=== PATIENT | female | born 1980 | race Caucasian/White ===

== ENCOUNTER → 2020-12-28 | Emergency (ER) | payer OTHER ==
[~2020-12-28] VITALS: Ht 160 cm; Wt 113.4 kg
== END | disposition left against medical advice (07) ==
LOC: ER 05:32
DX: Z53.21 Procedure and treatment not carried out due to patient leaving prior to being seen by health care provider (principal)

== ENCOUNTER 2022-01-31 09:12 | Emergency (ER) | payer OTHER ==
[~2022-01-31] VITALS: Ht 160 cm; Wt 117.9 kg
== END 2022-01-31 10:22 | disposition home or self-care (01) ==
LOC: ER 09:12
DX: J06.9 Acute upper respiratory infection, unspecified (principal); N39.0 Urinary tract infection, site not specified

== ENCOUNTER 2022-04-27 02:17 | Emergency (ER) | payer OTHER ==
[~2022-04-27] VITALS: Ht 162.6 cm; Wt 122.5 kg
[2022-04-27] MEDS ORDERED: PHENAGIL TABLE1 EACH PO (04:36)
[2022-04-27] MEDS ORDERED: FLONASE ALLERG9.9 ML NASAL (04:36)
[2022-04-27] MEDS ORDERED: ZYNCOF 20-400120 ML PO (04:37)
== END 2022-04-27 04:42 ==
LOC: ER 02:17
DX: J32.9 Chronic sinusitis, unspecified (principal); J06.9 Acute upper respiratory infection, unspecified

== ENCOUNTER 2022-09-09 22:38 | Emergency (ER) | payer OTHER ==
[~2022-09-09] VITALS: Ht 160 cm; Wt 113.4 kg
[~2022-09-09 22:38] MED LIST: FLONASE ALLERG9.9 ML NASAL; PHENAGIL TABLE1 EACH PO; ZYNCOF 20-400120 ML PO
[2022-09-09] MEDS ORDERED: BENZTROPINE MESY1 MG PO (22:57)
[2022-09-09] MEDS ORDERED: RISPERIDONE1 MG PO (22:58)
== END 2022-09-10 00:44 | disposition home or self-care (01) ==
LOC: ER 22:38
DX: R42 Dizziness and giddiness (principal)

== ENCOUNTER 2022-11-16 18:51 | Emergency (ER) | payer OTHER ==
[~2022-11-16] VITALS: Ht 170.2 cm; Wt 122.5 kg
[~2022-11-16 18:51] MED LIST changes: +BENZTROPINE MESY1 MG PO; +RISPERIDONE1 MG PO
== END 2022-11-16 22:52 | disposition home or self-care (01) ==
LOC: ER 18:51
DX: R05.9 Cough, unspecified (principal); E03.9 Hypothyroidism, unspecified; F20.9 Schizophrenia, unspecified